=== PATIENT | male | born 1940 | race Caucasian/White ===

== ENCOUNTER 2017-02-19 17:01 | Inpatient (IN) | payer MEDICARE ==
[~2017-02-19] VITALS: Ht 167.6 cm; Wt 80.2 kg
[~2017-02-19 17:01] MED LIST: AMLO5TAB2 PO; ASPI-515 PO; ESOM40CA PO; FERR325T18 PO; FINA5TAB4 PO; HYDR-3237 PO; LEVO100T5 PO; LISI-170 PO; METO50TA82 PO; OMEP40CA6 PO; SIMV10TA3 PO; TAMS0.4C2 PO
[2017-02-19] MEDS ORDERED: PLEASE ENTER HEIGHT AND WEIGHT MC SCH (17:30)
[2017-02-19] MEDS ORDERED: SODIUM CHLORIDE FLUSH 10ML SYR IVF ONE (17:30)
[2017-02-19] MEDS ORDERED: SODIUM CHLORIDE 0.9% 1,000ML IVBOLUS ONE ×2 (17:30→18:30)
[2017-02-19 17:44] LABS: ASPARTATE AMINO TRANSFERASE 14 U/L (15-37); BLOOD UREA NITROGEN 36 mg/dL (7-18)
[2017-02-19] MEDS ORDERED: INSULIN REGULAR 100 UNITS/ML, 3ML VIAL ONE (18:27)
[2017-02-19 18:30] LABS: PATH.CAST-FLAG NOT PRESENT; SPERM-FLAG NOT PRESENT; SRC-FLAG NOT PRESENT; XTAL-FLAG NOT PRESENT; YLC-FLAG NOT PRESENT
[2017-02-19] MEDS ORDERED: ONDANSETRON 2MG/ML, 2ML IVPush PRN (18:30)
[2017-02-19] MEDS ORDERED: ONDANSETRON 2MG/ML, 2ML IVP PRN (18:30)
[2017-02-19] MEDS ORDERED: HYDROmorphone 2 MG/ML, 1ML IVPush PRN (18:30)
[2017-02-19] MEDS ORDERED: ENOXAPARIN 40 MG/0.4 ML SQ SCH (18:30)
[2017-02-19] MEDS ORDERED: INSULIN REGULAR 100 UNITS/ML, 3ML VIAL SQ-INSULIN SCH (18:30)
[2017-02-19] MEDS ORDERED: NITROGLYCERIN 0.4 MG BOTTLE (25 TABS) SL PRN (18:30)
[2017-02-19] MEDS ORDERED: NITROGLYCERIN 0.4 MG/SPRAY SL PRN (18:30)
[2017-02-19] MEDS ORDERED: SODIUM CHLORIDE FLUSH 10ML SYR IVF PRN (18:30)
[2017-02-19] MEDS ORDERED: ASPIRIN 325 MG TABLET EC PO ONE (18:30)
[2017-02-19] MEDS ORDERED: ASPIRIN 325 MG TABLET EC ONE (19:02)
[2017-02-19] MEDS ORDERED: ENOXAPARIN 40 MG/0.4 ML ONE (19:03)
[2017-02-19 19:22] LABS: IS PT STATUS REG ER OR PRE ER? YES
[2017-02-19 20:28] VITALS: BP 165/88
[2017-02-19] MEDS ORDERED: FAMOTIDINE 20 MG/2 ML IVPush SCH (21:00)
[2017-02-19] MEDS: SODIUM CHLORIDE FLUSH 10ML SYR IVF SCH ×2 (21:00→22:15)
[2017-02-19 21:24] LABS: IS PT STATUS REG ER OR PRE ER? NO
[2017-02-19] MEDS: TAMSULOSIN 0.4 MG CAP.ER.24H PO SCH (21:56)
[2017-02-19] MEDS: INSULIN ASPART 100 UNITS/ML, PEN SQ-INSULIN SCH (22:19)
[2017-02-20 01:22] VITALS: BP 107/66
[2017-02-20] MEDS: ASPIRIN 325 MG TABLET EC PO SCH (05:44)
[2017-02-20 07:44] VITALS: BP 153/84
[2017-02-20] MEDS ORDERED: SODIUM CHLORIDE 0.9% 1,000 ML IV SCH (08:21)
[2017-02-20] MEDS ORDERED: CEFAZOLIN PMX 1GM/50ML 50 ML IVPB ONE (08:30)
[2017-02-20 08:39] LABS: HEMATOCRIT 40.8 % (39.2-51.8); HEMOGLOBIN 13.7 g/dL (13.7-18.0)
[2017-02-20 08:51] LABS: ASPARTATE AMINO TRANSFERASE 10 U/L (15-37); BLOOD UREA NITROGEN 26 mg/dL (7-18)
[2017-02-20] MEDS ORDERED: ASPIRIN 81 MG TABLET EC PO SCH (09:00)
[2017-02-20] MEDS: LEVOTHYROXINE 100 MCG TABLET PO SCH (09:00)
[2017-02-20] MEDS: INSULIN ASPART 100 UNITS/ML, PEN SQ-INSULIN SCH ×4 (09:10→21:37)
[2017-02-20] MEDS: FINASTERIDE 5 MG TABLET PO SCH (09:11)
[2017-02-20] MEDS: FAMOTIDINE 20 MG TABLET PO SCH ×2 (09:11→20:43)
[2017-02-20] MEDS: INSULIN DETEMIR 100 UNITS/ML, PEN SQ-INSULIN SCH ×2 (09:30→21:38)
[2017-02-20] MEDS ORDERED: LEVOTHYROXINE 50 MCG TABLET ONE (11:16)
[2017-02-20] MEDS: SODIUM CHLORIDE FLUSH 10ML SYR IVF SCH (11:27)
[2017-02-20 15:30] VITALS: BP 171/89
[2017-02-20] MEDS ORDERED: FENTANYL PF 100 MCG/2ML ONE (16:26)
[2017-02-20] MEDS ORDERED: LIDOCAINE 2%, 20ML ONE (16:26)
[2017-02-20] MEDS ORDERED: CEFAZOLIN PMX 1GM/50ML 50 ML ONE (16:27)
[2017-02-20] MEDS ORDERED: CEFAZOLIN 1,000 MG ONE (16:27)
[2017-02-20] MEDS ORDERED: MIDAZOLAM 1 MG/ML, 5ML ONE (16:27)
[2017-02-20] MEDS ORDERED: LABETALOL 5MG/ML, 20ML ONE (17:18)
[2017-02-20] MEDS ORDERED: ACETAMINOPHEN 325 MG TABLET PO PRN (18:00)
[2017-02-20 18:09] VITALS: BP 171/97
[2017-02-20] MEDS: hydrALAzine 20 MG/ML, 1ML IVPush PRN (18:22)
[2017-02-20 18:44] VITALS: BP 119/72
[2017-02-20] MEDS: TAMSULOSIN 0.4 MG CAP.ER.24H PO SCH (21:37)
[2017-02-21] MEDS: CEFAZOLIN PMX 1GM/50ML 50 ML IVPB SCH ×2 (01:01→09:00)
[2017-02-21 01:29] VITALS: BP 114/77
[2017-02-21] MEDS ORDERED: FLU VACC QS2017-18 (36MOS+) UP/PF 0.5 ML IM-VACC ONE (03:30)
[2017-02-21 05:01] LABS: HEMATOCRIT 39.1 % (39.2-51.8); HEMOGLOBIN 13.4 g/dL (13.7-18.0); WHITE BLOOD COUNT 13.9 x10^3/uL (3.4-10)
[2017-02-21 05:28] LABS: ASPARTATE AMINO TRANSFERASE 10 U/L (15-37); BLOOD UREA NITROGEN 22 mg/dL (7-18)
[2017-02-21] MEDS ORDERED: POTASSIUM CHLORIDE 40 MEQ in SODIUM CHLORIDE 0.9% 500 ML IV ONE (06:00)
[2017-02-21 07:16] VITALS: BP 173/77
[2017-02-21] MEDS ORDERED: LEVOTHYROXINE 50 MCG TABLET ONE (07:24)
[2017-02-21] MEDS: ASPIRIN 325 MG TABLET EC PO SCH (07:59)
[2017-02-21] MEDS: FINASTERIDE 5 MG TABLET PO SCH (07:59)
[2017-02-21] MEDS: FAMOTIDINE 20 MG TABLET PO SCH (07:59)
[2017-02-21] MEDS: INSULIN DETEMIR 100 UNITS/ML, PEN SQ-INSULIN SCH (08:01)
[2017-02-21] MEDS: INSULIN ASPART 100 UNITS/ML, PEN SQ-INSULIN SCH ×4 (08:01→20:45)
[2017-02-21] MEDS: LEVOTHYROXINE 100 MCG TABLET PO SCH (08:02)
[2017-02-21] MEDS: hydrALAzine 20 MG/ML, 1ML IVPush PRN (08:59)
[2017-02-21] MEDS ORDERED: INSULIN DETEMIR 100 UNITS/ML, PEN SQ-INSULIN SCH ×2 (09:30→21:00)
[2017-02-21] MEDS ORDERED: POTASSIUM CHLORIDE 20 MEQ TAB.ER.PRT PO ONE (09:30)
[2017-02-21] MEDS ORDERED: INSULIN DETEMIR 100 UNITS/ML, PEN SQ-INSULIN ONE (12:00)
[2017-02-21 12:21] LABS: BLOOD UREA NITROGEN 19 mg/dL (7-18)
[2017-02-21 13:41] VITALS: BP 110/73
[2017-02-21] MEDS ORDERED: POTASSIUM CHLORIDE 20 MEQ TAB.ER.PRT ONE (15:14)
[2017-02-21] MEDS: LISINOPRIL 20 MG TABLET PO SCH ×2 (15:20→22:36)
[2017-02-21] MEDS: AMLODIPINE 5 MG TABLET PO SCH ×2 (15:20→20:43)
[2017-02-21] MEDS: FERROUS SULFATE 325 MG TABLET PO SCH (16:54)
[2017-02-21 19:25] VITALS: BP 160/91
[2017-02-21] MEDS: TAMSULOSIN 0.4 MG CAP.ER.24H PO SCH (20:43)
[2017-02-21] MEDS: OMEPRAZOLE 20 MG CAPSULE.DR PO SCH (20:43)
[2017-02-21] MEDS: APIXABAN 5 MG TABLET PO SCH (20:47)
[2017-02-21] MEDS ORDERED: SIMVASTATIN 10 MG TABLET PO SCH (21:00)
[2017-02-21 22:27] VITALS: BP 147/94
[2017-02-22 02:12] VITALS: BP 115/84
[2017-02-22 05:40] LABS: HEMATOCRIT 39.6 % (39.2-51.8); HEMOGLOBIN 13.2 g/dL (13.7-18.0); WHITE BLOOD COUNT 14.1 x10^3/uL (3.4-10)
[2017-02-22 06:04] LABS: BLOOD UREA NITROGEN 16 mg/dL (7-18)
[2017-02-22] MEDS ORDERED: LEVOTHYROXINE 50 MCG TABLET ONE (07:28)
[2017-02-22 07:44] VITALS: BP 115/76
[2017-02-22] MEDS: FERROUS SULFATE 325 MG TABLET PO SCH (08:00)
[2017-02-22] MEDS ORDERED: INSULIN DETEMIR 100 UNITS/ML, PEN SQ-INSULIN SCH ×2 (08:00)
[2017-02-22] MEDS ORDERED: METOPROLOL TARTRATE 25 MG TABLET PO SCH (08:30)
[2017-02-22] MEDS: FINASTERIDE 5 MG TABLET PO SCH (08:31)
[2017-02-22] MEDS: AMLODIPINE 5 MG TABLET PO SCH (08:31)
[2017-02-22] MEDS: OMEPRAZOLE 20 MG CAPSULE.DR PO SCH (08:31)
[2017-02-22] MEDS: APIXABAN 5 MG TABLET PO SCH (08:31)
[2017-02-22] MEDS: LISINOPRIL 20 MG TABLET PO SCH (08:31)
[2017-02-22] MEDS: LEVOTHYROXINE 100 MCG TABLET PO SCH (08:32)
[2017-02-22] MEDS: INSULIN ASPART 100 UNITS/ML, PEN SQ-INSULIN SCH ×2 (08:33→12:58)
[2017-02-22] MEDS ORDERED: APIX5TAB PO (11:49)
[2017-02-22] MEDS ORDERED: INSU100I28 SQ-INSULIN ×2 (11:49)
[2017-02-22] MEDS ORDERED: METO25TA35 PO (11:49)
== END 2017-02-22 14:22 | disposition home health service (06) | DRG 242 ==
LOC: ED 18:49 → EDIP 18:50 → 5SO 20:20 → DCLOUNGE 02-22 13:37
PROVIDERS: ADMIT Family Medicine; ATTEND Family Medicine
PROC: 0JH606Z Insertion of Pacemaker, Dual Chamber into Chest Subcutaneous Tissue and Fascia, Open Approach (ICD-10-PCS; principal; 2017-02-20)
PROC: 02H63JZ Insertion of Pacemaker Lead into Right Atrium, Percutaneous Approach (ICD-10-PCS; 2017-02-20)
PROC: 02HK3JZ Insertion of Pacemaker Lead into Right Ventricle, Percutaneous Approach (ICD-10-PCS; 2017-02-20)
DX: I49.5 Sick sinus syndrome (principal); E11.00 Type 2 diabetes mellitus with hyperosmolarity without nonketotic hyperglycemic-hyperosmolar coma (NKHHC); E11.51 Type 2 diabetes mellitus with diabetic peripheral angiopathy without gangrene; E11.22 Type 2 diabetes mellitus with diabetic chronic kidney disease; I48.92 Unspecified atrial flutter; E11.65 Type 2 diabetes mellitus with hyperglycemia; I48.0 Paroxysmal atrial fibrillation; E87.1 Hypo-osmolality and hyponatremia; I50.9 Heart failure, unspecified; I11.0 Hypertensive heart disease with heart failure; K21.9 Gastro-esophageal reflux disease without esophagitis; N28.9 Disorder of kidney and ureter, unspecified; I45.5 Other specified heart block; I25.10 Atherosclerotic heart disease of native coronary artery without angina pectoris; D72.829 Elevated white blood cell count, unspecified; E03.9 Hypothyroidism, unspecified; E78.5 Hyperlipidemia, unspecified; I25.2 Old myocardial infarction; N40.0 Benign prostatic hyperplasia without lower urinary tract symptoms; Z82.49 Family history of ischemic heart disease and other diseases of the circulatory system; Z86.79 Personal history of other diseases of the circulatory system; Z87.891 Personal history of nicotine dependence; Z90.49 Acquired absence of other specified parts of digestive tract; Z95.1 Presence of aortocoronary bypass graft; Z23 Encounter for immunization; Z79.82 Long term (current) use of aspirin; Z79.899 Other long term (current) drug therapy; I12.9 Hypertensive chronic kidney disease with stage 1 through stage 4 chronic kidney disease, or unspecified chronic kidney disease; N18.3 Chronic kidney disease, stage 3 (moderate)
CPT/HCPCS: 33208; 36415; 71010; 80048; 80053; 80061; 81001; 82010; 82800; 82962; 83036; 83721; 83735; 83880; 84100; 84443; 84484; 85025; 90686; 93005; 93306; 96360; 96361; 96372; 99156; C1779; C1785; C1892; J0690; J1650; J1815; J2250; J3010; J3480; J3490; J0360; J7030; J7040; S0028

== ENCOUNTER 2019-11-19 10:46 | Day surgery (SDC) | payer MEDICARE ==
[~2019-11-19] VITALS: Ht 168.9 cm; Wt 70.5 kg
[~2019-11-19 10:46] MED LIST changes: +AMLO-150 PO; +AMLO10TA8 PO; -AMLO5TAB2 PO; +APIX5TAB PO; +CHOL200024 PO; +FERR325T23 PO; +INSU100I28 SC; +INSU100I28 SQ-INSULIN; +METO25TA35 PO; +METO25TA91 PO; +OMEP40CA42 PO; -OMEP40CA6 PO; +ROSU40TA PO; +SIMV10TA18 PO; -SIMV10TA3 PO; +VALS320T2 PO
[2019-11-19] MEDS ORDERED: LACTATED RINGERS 1,000 ML IV STA (11:25)
[2019-11-19] MEDS ORDERED: CHLORHEXIDINE 15 ML UDC MM STA (11:25)
[2019-11-19 11:44] VITALS: BP 125/86
[2019-11-19] MEDS ORDERED: CHLORHEXIDINE 15 ML UDC ONE (11:53)
[2019-11-19] MEDS ORDERED: PLEASE ENTER HEIGHT AND WEIGHT MC SCH (12:00)
[2019-11-19 12:26] LABS: ALBUMIN 3.5 g/dL (3.4-5.0); ANION GAP 8 mmol/L (5-15); CALCIUM 8.7 mg/dL (8.5-10.1); CHLORIDE 103 mmol/L (98-107)
[2019-11-19 12:29] LABS: ALANINE AMINOTRANSFERASE 18 U/L (12-78); ALKALINE PHOSPHATASE 51 U/L (45-117); BILIRUBIN,TOTAL 0.4 mg/dL (0.2-1.0); TOTAL PROTEIN 7.5 g/dL (6.4-8.2)
[2019-11-19] MEDS ORDERED: LACTATED RINGERS 1,000 ML IV ONE (12:30)
[2019-11-19] MEDS ORDERED: PROPOFOL 50 ML ONE (13:17)
[2019-11-19] MEDS ORDERED: PROPOFOL 10 MG/ML, 20ML ONE (13:28)
== END 2019-11-19 15:30 | disposition home or self-care (01) ==
LOC: OUT 10:46
PROVIDERS: ATTEND Internal Medicine Geriatric Medicine
DX: R19.5 Other fecal abnormalities (principal); Q27.33 Arteriovenous malformation of digestive system vessel; Z20.828 Contact with and (suspected) exposure to other viral communicable diseases; I12.0 Hypertensive chronic kidney disease with stage 5 chronic kidney disease or end stage renal disease; E11.22 Type 2 diabetes mellitus with diabetic chronic kidney disease; N18.6 End stage renal disease; E78.5 Hyperlipidemia, unspecified; I25.10 Atherosclerotic heart disease of native coronary artery without angina pectoris; E03.9 Hypothyroidism, unspecified; I48.0 Paroxysmal atrial fibrillation; Z99.2 Dependence on renal dialysis; Z79.4 Long term (current) use of insulin; Z79.899 Other long term (current) drug therapy; Z98.890 Other specified postprocedural states; Z87.891 Personal history of nicotine dependence; Z82.49 Family history of ischemic heart disease and other diseases of the circulatory system; Z83.3 Family history of diabetes mellitus
CPT/HCPCS: 43270; 80053; 82962; 87635; 93005; J2704; J7120